=== PATIENT | male | born 1985 | race Caucasian/White ===

== ENCOUNTER 2024-11-10 09:54 | Outpatient (AMB) | payer OTHER, SELFPAY ==
--- NOTE | 2024-11-10 10:02 | MHC.PC.OV ---
Vital Signs 11/10/24 10:08 Height 5 ft 8 in Weight 214 lb 6 oz BMI 32.6 BP 124/72 Blood Pressure Location Rt brachial Position Sitting Respiration 12 Pulse 66 Pulse Source Pulse Oximeter Temp 97.6 F Temp Source Oral Pulse Oximetry (%) 99 Oxygen Delivery Method Room Air Intake Visit Reasons: Est. Care Intake Note: New patient to establish care. Woods Manager Required: No Allergies atorvastatin Allergy (Severe, Verified 11/10/24 10:30) Joint Pain Penicillins Allergy (Severe, Verified 11/10/24 10:30) Hives Medication List - Last Reconciled 11/10/24 by Margot Conley, [facility] escitalopram oxalate 10 mg PO DAILY rosuvastatin 10 mg PO DAILY Tobacco use date assessed: 11/10/24 Dental Screening Dental Screen Date: 11/10/24 Did you have a dental visit in the last 12 months?: Yes Did you have a dental problem in the last 6 months where you did not have access to dental care?: No Was dental information given to patient?: Patient has dentist HPI HPI Comments History of Present Illness Details 39 y/o M with obesity, HLD, MDD, CARMITA, hx of statin induced myalgia, chronic fatigue, low libido Surgery: None Fhx: Dad hypothyroid, ND, MGM depression, MFG ND, PGF hypothyroid, brother MDD, Mom 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 Skin - no concerns - History of anxiety and depression, stable on escitalopram 10 mg daily. - History of hyperlipidemia with improvement on rosuvastatin 10 mg daily. Tolerating w/o side effects. FMhx HLD - Obesity with BMI of 32.6; some weight loss achieved but struggles with further reduction. - Reports chronic fatigue with slight improvement, normal testosterone levels. No current libido complaints. - Presence of left leg varicose veins, visible after weight loss, without significant discomfort. Past Surgical History - No history of surgery. 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 - Lives with a roommate, reports feeling safe. - Engages in physical activity as part of work routine. - Reports good nutritional intake, including fruits and vegetables; avoids sugary drinks and fast food. - Difficulty in weight management despite a healthy lifestyle. Health Maintenance - Last cholesterol lab results in 2023 showed improvement while on medication. - Overdue for tetanus vaccination, no record of recent update. - Routine screening planned for thyroid function due to family history. - Orders placed for routine lab work including cholesterol, renal, liver, and glucose levels. Review of Systems - Psychiatric: Denies overt depression or anxiety, reports stability on medication. - Cardiovascular: Reports no swelling in varicose vein-affected leg. - Endocrine: Denies history of diabetes, last testosterone level normal. - Hematologic: Denies feeling weak or faint during blood work. - Genitourinary: Denies issues with urination; reports low libido, notes slight improvement. - Musculoskeletal: Denies swelling but reports chronic fatigue. - Nutrition: Reports eating healthy with fruits and vegetables, active lifestyle. Physical Exam General: Well developed, well nourished, in no acute distress. Appears stated age. Head: Normocephalic, atraumatic. Eyes: Pupils are equal, round and reactive to light and accommodation. Conjunctivae are clear. Vision grossly normal. Patient wears eyeglasses. Ears: TMs clear AU, EACS WNL Nose: Patent, without discharge. Neck: Supple, no adenopathy or thyromegaly. Thyroid palpation was performed due to family history. Breast: Edu on SBE Lungs: Clear to auscultation bilaterally. No rales, rhonchi or wheeze noted. Good air flow in all white. Heart: Regular rate and rhythm. No murmurs, click, rubs or gallops are noted. Abdomen: Bowel sounds present in all quadrants. The abdomen is soft, nontender, with no masses or organomegaly noted. No hernias are noted. : Deferred. Reviewed SEBASTIAN & recommendations, Patient performs regular testicular self-exams. Pulses: Peripheral pulses are equal and palpable bilaterally. Strong pulses noted even with varicose veins. Extremities: No clubbing, cyanosis nor edema is noted. Varicose veins present on the left leg thigh to calf Neurologic: Gait and station normal. Cranial Nerves 2-12 intact. Motor strength grossly symmetrical and intact. No sensory loss. Balance normal. Skin: No rashes, ulcers, or lesions noted. Turgor is good. Skin color is good. Hair and nails are without abnormalities. Psych: Normal eye contact, affect and mood appropriate, and normal interactions. Patient is alert and appropriate to context. Results See below Discussion Notes We discussed the need for continued management of anxiety, depression, hyperlipidemia, and weight issues. I advised maintaining escitalopram and monitoring cholesterol levels to determine the necessity for ongoing rosuvastatin therapy. Educational material regarding lifestyle modifications for weight management was provided, emphasizing diet and physical activity. We discussed the potential benefits and procedures available for treating varicose veins and agreed on referring the patient to a vascular specialist at [facility]. Blood tests for cholesterol and routine screening have been planned. The patient was informed about the patient portal for test results and communications. Assessment and Plan 1. Anxiety and Depression - Continue escitalopram 10 mg daily; monitor symptoms. 2. Hyperlipidemia - Maintain rosuvastatin 10 mg; perform lab tests for monitoring. 3. 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 4. Varicose Vein L - Refer to vascular specialist; discuss treatment options. 5. Chronic Fatigue - Monitor; ensure rest and lifestyle management. 6. Health Maintenance - Update labs; refer for overdue tetanus vaccination. Patient Instructions - Continue taking meds as directed. - Maintain a healthy diet and exercise routine to aid weight management. - Visit referred vascular specialist for varicose veins evaluation. - Respond to lab testing requisitions promptly. - Ensure overdue vaccinations are updated. - RTO 6 mo HLD check, labs 1 week before, sooner PRN Consent Patient was informed and verbally consented to the use of an ambient scribe for clinic note documentation during this visit. An additional 30 minutes was spent addressing the problem(s) noted at todays visit. This includes time spent before the visit reviewing the chart, time spent during the visit, and time spent after the visit on documentation reviewing laboratory results, diagnostic imaging, medications, performing a medically necessary evaluation, counseling on diagnoses, care coordination, ordering appropriate tests, ordering appropriate medications, review of tests performed by other providers, reporting test results with the patient, communication with other healthcare providers. [facility] Medical History (Updated 11/10/24 @ 16:21 by ELIZABETH Ramirez) Allergy Anxiety and depression Hyperlipidemia Obesity Sinusitis Surgical History No pertinent past surgical history Family History (Updated 11/10/24 @ 10:13 by Polo Segovia MA) Father Thyroid disorder Heart attack Maternal Grandfather Heart attack High cholesterol Paternal Grandfather Thyroid disorder Paternal Grandmother High cholesterol Social History (Updated 11/10/24 @ 10:03 by Polo Segovia MA) Housing: House Alcohol intake: current Alcohol intake frequency: a few times a month Patient Tobacco Use Status: Never used Tobacco e-Cigarette/Vaping Use: Never Used Second Hand Smoke Exposure: No Current occupational status: employed 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 1. Little interest or pleasure in doing things: not at all 2. Feeling down, depressed, or hopeless: not at all 3. Trouble falling or staying asleep, or sleeping too much: not at all 4. Feeling tired or having little energy: several days 5. Poor appetite or overeating: not at all 6. Feeling bad about yourself - or that you are a failure or have let yourself or your family down: not at all 7. Trouble concentrating on things, such as reading the newspaper or watching television: not at all 8. Moving or speaking so slowly that other people could have noticed. Or the opposite - being so fidgety or restless that you have been moving around a lot more than usual: not at all 9. Thoughts that you would be better off or of hurting yourself in some way: not at all Total score: 1 Depression Screening Interpretation: Negative Depression Screening Done: Yes 65423 - PHQ-9 Billing: Yes Source: Developed by Drs. Neal Maxwell, Debra Alvarez, Cortes Washburn and colleagues, with an educational phuc from [employer]. Thrive Questionnaire Date Thrive assessed: 11/10/24 I am a: Patient What is your living situation today?: I have a steady place to live Within the past 12 months, did the food you bought not last and you didn't have the money to get more?: Never true Within the past 12 months, did you worry whether your food would run out before you got money to buy more?: Never true Do you have trouble paying for medicines?: No Do you have trouble getting transportation to medical appointments?: No Do you have trouble paying your heating and electricity bill?: No Do you have trouble taking care of your child, family member or friend?: No Do you have trouble with day-to-day activities such as bathing, preparing meals, shopping, managing finances, etc.?: No Are you currently unemployed and looking for a job?: No Are you interested in more education?: No Please select the resources that you would like help with: None Currently or been in a relationship where the following occur: No concerns reported THRIVE Score: 0 AUDIT C Alcohol Use Questionnaire (AUDIT-C) 1. How often do you have a drink containing alcohol?: Monthly or less 2. How many drinks containing alcohol do you have on a typical day when you are drinking?: 1 or 2 Total Score: 1 Score Reviewed/Action Taken: Yes CARMITA-7 AMB Questionnaire CARMITA-7 Date CARMITA - 7 assessed: 11/10/24 Feeling nervous, anxious, or on edge: 0 = Not at all Not being able to stop or control worryin = Not at all Worrying too much about different things: 0 = Not at all Trouble relaxin = Not at all Being so restless that it is hard to sit still: 0 = Not at all Becoming easily annoyed or irritable: 0 = Not at all Feeling afraid as if something awful might happen: 0 = Not at all Total CARMITA-7 score (0-4 normal; 5-9 mild; 10-14 moderate; 15-21 severe): 0 Source: Developed by Drs. Neal Maxwell, Debra Alvarez, Cortes Washburn and colleagues, with an educational phuc from [employer]. CARMITA-7 Assessment Billing CARMITA-7 Assessment Tool: CARMITA-7 Assessment 03912 Physical exam (Primary Care) Vital Signs: Last Vital Signs Temp 97.6 F 11/10/24 10:08 Pulse 66 11/10/24 10:08 Resp 12 11/10/24 10:08 BP 124/72 11/10/24 10:08 Pulse Ox 99 11/10/24 10:08 Oxygen Delivery Method Room Air 11/10/24 10:08 BMI result Body Mass Index 32.6 BMI Assessment/Plan discussion: High BMI High, discussed plan: lifestyle Tobacco/Smoking Status: Tobacco use Status Tobacco use date assessed 11/10/24 11/10/24 10:05 Patient Tobacco Use Status Never used Tobacco 11/10/24 10:04 e-Cigarette/Vaping Use Never Used 11/10/24 10:04 PHQ-9: PHQ-9 Score PHQ-9: Total score 1 11/10/24 10:36 Depression Screening Interpretation: Negative Thrive Assessment: Date of Thrive Assessment Date Thrive assessed 11/10/24 11/10/24 10:04 Currently or been in a relationship where the following occur: No concerns reported Results Reviewed Results Reviewed: LDL, or bad cholesterol continues to be above goal; will continue your rosuvastatin at the same dose, i have sent this refill in. Otherwise, labs look good! Laboratory Result Units Range Interpretation Provider Comments Sodium Level 141 mmol/L (135-145) Potassium Level 4.1 mmol/L (3.3-5.1) Chloride Level 104 mmol/L (96-108) Carbon Dioxide Level 32 mmol/L (22-29) High Anion Gap 9 (12-20) Low Blood Urea Nitrogen 9 mg/dL (9-16) Creatinine 0.89 mg/dL (0.5-1.4) Estimated Creatinine Clearance Calc Not Reportable Estimat Glomerular Filtration Rate > 60 Random Glucose 94 mg/dL (60-115) Estimated Average Glucose 105 mg/dL Hemoglobin A1c Percent 5.3 % (<6.0) Calcium Level 9.2 mg/dL (8.4-10.2) Total Bilirubin 0.9 mg/dL (0.0-1.0) Aspartate Amino Transf (AST/SGOT) 31 U/L (5-37) Alanine Aminotransferase (ALT/SGPT) 41 U/L (0-40) High Alkaline Phosphatase 74 U/L (39-117) Total Protein 7.5 g/dL (6.5-8.0) Albumin 4.8 g/dL (3.5-5.0) Triglycerides Level 103 mg/dL (<150) Cholesterol Level 213 mg/dL (<200) High LDL Cholesterol, Calculated 127 mg/dL (<100) High HDL Cholesterol 66 mg/dL (>40) Vitamin B12 Level 472 pg/mL (200-900) 25-Hydroxy Vitamin D Total 37.6 ng/mL (>30) Folate 8.5 ng/mL (> or = 4.0) Thyroid Stimulating Hormone (TSH) 1.17 uIU/mL (0.32-4.0) Urine Creatinine 89.71 mg/dL Urine Microalbumin < 5.0 mg/L Urine Microalbumin/Creatinine Ratio TNP Coding Level of Care Code New Pt Level 3 (35256) New Pt Prev Care 18-39yr(51534 Diagnoses Encounter to establish care Z76.89 Obesity (BMI 30-39.9) E66.9 CARMITA (generalized anxiety disorder) F41.1 Mild episode of recurrent major depressive disorder F33.0 Major depression episode severity: mild Varicose veins of left leg with edema I83.892 Laboratory exam ordered as part of routine general medical examination Z00.00 Encounter for general adult medical examination without abnormal findings Z00.00 Additional Codes CARMITA-7 Assessment Billing - CARMITA-7 Assessment Tool: CARMITA-7 Assessment 98520 ([id number]) PHQ-9 - 36477 - PHQ-9 Billing: Yes ([id number]) Assessment & Plan Assessment & Plan (1) Encounter to establish care: Code(s): Z76.89 - Persons encountering health services in other specified circumstances (2) Obesity (BMI 30-39.9): Code(s): E66.9 - Obesity, unspecified Category: Medical (3) CARMITA (generalized anxiety disorder): Code(s): F41.1 - Generalized anxiety disorder Category: Medical (4) MDD (major depressive disorder), recurrent episode: Code(s): F33.9 - Major depressive disorder, recurrent, unspecified Category: Medical Qualifiers: Major depression episode severity: mild Qualified Code(s): F33.0 - Major depressive disorder, recurrent, mild (5) Varicose veins of left leg with edema: Code(s): I83.892 - Varicose veins of left lower extremity with other complications Category: Medical (6) Laboratory exam ordered as part of routine general medical examination: Code(s): Z00.00 - Encounter for general adult medical examination without abnormal findings Category: Medical (7) Encounter for general adult medical examination without abnormal findings: Onset Date: ~11/10/24 Code(s): Z00.00 - Encounter for general adult medical examination without abnormal findings Category: Medical Plan . Orders: Orders Hemoglobin A1c Today Z00.00 - Encounter for general adult medical examination without abnormal findings Microalbumin, Random (w Creat) Today Z00.00 - Encounter for general adult medical examination without abnormal findings TSH reflex Free T4 Today Z00.00 - Encounter for general adult medical examination without abnormal findings Comprehensive Met. Panel Today Z00.00 - Encounter for general adult medical examination without abnormal findings Lipid Panel Today Z00.00 - Encounter for general adult medical examination without abnormal findings Vitamin B12 and Folate Today Z00.00 - Encounter for general adult medical examination without abnormal findings Vitamin D 25-OH Total Today Z00.00 - Encounter for general adult medical examination without abnormal findings Referrals Vascular Surgery Referral I83.892 - Varicose veins of left lower extremity with other complications Medications: New escitalopram oxalate 10 mg PO DAILY 90 tabs 2RF rosuvastatin 10 mg PO DAILY 90 tabs 2RF Patient Instructions: Walk-In Care (Urgent Care): We Make it Easy Walk-in for urgent medical issues such as: ? Seasonal Allergies ? Insect Bites ? Cough ? Diarrhea ? Acute Asthma Attacks ? Back, Knee or Joint Pain ? Ear Infection ? Fever without a Rash ? Headaches ? Nausea ? [place] Eye, Rash or Skin Irritation ? Sore Throat ? Sports Physicals ? Vomiting Most insurances are accepted. Patients do not need to be part of the [facility] to seek care at the walk-in clinic. Locations [facility] , [place] [address] ? [phone] [facility] Walk-In Care in [place] provides services to ages 18 and over. Open Wednesday-Wednesday: 8 a.m. to 5 p.m. and Wednesday: 9 a.m. to 3 p.m.* *Hours may vary due to staffing availability. To confirm Walk-In Care hours in [place], please call [phone]. [address] [place] [address] ? [phone] [facility] Walk-In Care in [place] provides services to ages 12 and over. Open Wednesday-Wednesday: 8 a.m. to 5 p.m. Hours may vary due to staffing availability. To confirm Walk-In Care hours in [place], please call [phone]. LABORATORY SERVICES: [facility] ? Primary Location [address] [place] [address] Wednesday through Wednesday 6:00 AM ? 5:00 PM Wednesday 7:00 AM ? 11:00 AM* [phone] The [facility] is centrally located near the front entrance of the [facility] for easy outpatient access. Convenient parking is provided for outpatients. *Hours may vary due to staffing availability. To confirm Laboratory hours for any location, please call [phone]. Offsite Location For your convenience, we offer offsite laboratory draw stations at the following locations: [address] [place] [address] ? [facility] [address] [facility], [address] Wednesday through Wednesday 7:30 AM ? 1:00 PM* [phone] *Hours may vary due to staffing availability. To confirm Laboratory hours for any location, please call [phone]. [place] ? [address] Wednesday through Wednesday 6:00 AM ? 3:30 PM* Wednesday 6:30 AM ? 3 PM* [phone] *Hours may vary due to staffing availability. To confirm Laboratory hours for any location, please call [phone] [facility] Wednesday through Wednesday 7:30 AM ? 4:00 PM* [phone] *Hours may vary due to staffing availability. To confirm Laboratory hours for any location, please call [phone] [place] [address] Wednesday through 9:00 AM ? 4:00 PM* *Hours may vary due to staffing availability. To confirm Laboratory hours for any location, please call [phone]. Appointments are not necessary. Walk-ins are welcome. Like all the departments throughout the [facility], our Lab undergoes frequent reviews to ensure the quality and accuracy of test results, and our staff takes special pride in its status as a nationally accredited facility. Patient Portal: ONE PATIENT. ONE RECORD. BETTER CARE. [facility] has a fully integrated, cutting-edge mobile electronic health information system that has revolutionized the way we care for our patients and manage our organization. This system improves communication and coordination enabling us to provide safe, higher-quality care, and an overall positive experience for staff and patients. Our first priority, as always, is to deliver the highest quality care possible. The system is running in the background supporting that priority. This portal is for all [facility] services and practices. If you are experiencing any technical difficulties with enrolling or logging into the Patient Portal please complete the [facility] Patient Portal Technical Support Form. [facility] now offers a new secure on-line interactive tool for patients to review their health information ? ?Patient Portal. This interactive web portal will enable patients and their families to take an active role in their care by providing easy, secure access to their health information via the internet. The Patient Portal provides patients with instant access to their health information, including laboratory results, medications, allergies, demographic information, visit history, and more. In addition to managing their own care, parents and health care proxies with authorized consent will appreciate the ability to access the records of those individuals for whom they provide care. Please note: if you wish to gain access (Proxy) to another patient?s portal, you will be required to come to the Medical Records Department in person at [facility]. Both the patient giving proxy access and the proxy will need to provide photo identification and complete the appropriate authorization. The Patient Portal also allows track their appointments online. The [facility] Patient Portal also saves patients time by allowing them to submit updates to their demographic and contact information prior to their visits. Portal email notifications will also alert patients to any new activity on their portal, such as test results and new appointments. In order to initially enroll in the [facility] Patient Portal, you will need to enter some required information including the following: your [facility] Medical Record number your personal home email address name date of Please note: In order to enroll in the [facility] Patient Portal, we need to have your email address on file in your electronic medical record. ?The email address needs to be specific for one person (yourself) in order for your Portal enrollment to be successful. ?You can update your email address in person with our Registration staff when you are registering for a hospital visit. ?Otherwise, you will need to come to the Health Information Management (Medical Records) Department at [facility]. ?We are open from Wednesday ? Wednesday from 7:30 a.m. ? 4:30 p.m. ?You will be required to present a photo id. Once you have successfully enrolled in the Patient Portal, you will receive a one-time user id and password for the Portal, sent to your email address. ?This will allow you to log into the Patient Portal within 99 hrs and reset your own logon id and password, and define personal security questions. ?Once your permanent login and password have been set, you can log into the [facility] Patient Portal at any time via the blue button above or from the Portal Logon button on any page of the [facility] website. [facility] encourage all of our patients to enroll in Patient Portal as it presents a valuable opportunity for patients and their families to actively participate in their care and stay healthy Welcome to [facility]. ?We look forward to working with you. Health screenings for men You should visit your health care provider regularly, even if you feel healthy. The purpose of these visits is to: Screen for medical issues Assess your risk for future medical problems Encourage a healthy lifestyle Update vaccinations and other preventive care services Help you get to know your provider in case of an illness Information Even if you feel fine, you should still see your provider for regular checkups. These visits can help you avoid problems in the future. For example, the only way to find out if you have high blood pressure is to have it checked regularly. High blood sugar and high cholesterol level also may not have any symptoms in the early stages. Simple blood tests can check for these conditions. There are specific times when you should see your provider or receive specific health screenings. The [place] Preventive Services Task Force publishes a list of recommended screenings. Below are screening guidelines for men ages 40 to 64. BLOOD PRESSURE SCREENING Have your blood pressure checked at least once every year. Watch for blood pressure screenings in your area. Ask your provider if you can stop in to have your blood pressure checked. Ask your provider if you need your blood pressure checked more often if: You have diabetes, heart disease, kidney problems, or are overweight or have certain other health conditions You have a first-degree relative with high blood pressure You are Black Your blood pressure top number is from 120 to 129 mm Hg, or the bottom number is from 70 to 79 mm Hg If the top number is 130 mm Hg or greater or the bottom number is 80 mm Hg or greater, this is considered stage 1 hypertension. Schedule an appointment with your provider to learn how you can lower your blood pressure. Effects of age on blood pressure CHOLESTEROL SCREENING Cholesterol screening should begin at age 35 for men with no known risk factors for coronary heart disease. Repeat cholesterol screening should take place: Every 5 years for men with normal cholesterol levels More often if changes occur in lifestyle (including weight gain and diet) More often if you have diabetes, heart disease, kidney problems, or certain other conditions COLORECTAL CANCER SCREENING If you are under age 45, talk to your provider about getting screened. You may need to be screened if you have a strong family history of colon cancer or polyps. Screening may also be considered if you have risk factors such as a history of inflammatory bowel disease or polyps. If you are age 45 to 75, you should be screened for colorectal cancer. There are several screening tests available: A stool-based fecal occult blood (gFOBT) or fecal immunochemical test (FIT) every year A stool sDNA test every 1 to 3 years Flexible sigmoidoscopy every 5 years or every 10 years with stool testing FIT done every year CT colonography (virtual colonoscopy) every 5 years Colonoscopy every 10 years You may need a colonoscopy more often if you have risk factors for colorectal cancer, such as: Ulcerative colitis A personal or family history of colorectal cancer A history of growths in your colon called adenomatous polyps DENTAL EXAM Go to the dentist once or twice every year for an exam and cleaning. Your dentist will evaluate if you have a need for more frequent visits. DIABETES SCREENING All adults who do not have risk factors for diabetes should be screened starting at age 35 and repeated every 3 years. If you have other risk factors for diabetes, such as a first degree relative with diabetes, overweight or obesity, high blood pressure, prediabetes, or a history of heart disease, you may be tested more often. If you are overweight and have other risk factors, such as high blood pressure and are planning to become , screening is recommended. EYE EXAM Have an eye exam every 2 to 4 years ages 40 to 54 and every 1 to 3 years ages 55 to 64. Your provider may recommend more frequent eye exams if you have vision problems or glaucoma risk. Have an eye exam that includes an examination of your retina (back of your eye) at least every year if you have diabetes. IMMUNIZATIONS Commonly needed vaccines include: Flu shot: get one every year COVID-19 vaccine: ask your provider what is best for you Tetanus-diphtheria and acellular pertussis (Tdap) vaccine: have as one of your tetanus-diphtheria vaccines if you did not receive it as an adolescent Tetanus-diphtheria: have a booster (or Tdap) every 10 years Varicella vaccine: receive 2 doses if you never had chickenpox or the varicella vaccine and were born in 1980 or after Hepatitis B vaccine: receive 2, 3, or 4 doses, depending on your exact circumstances, if you did not receive these as a child or adolescent, until age 59 Shingles (herpes zoster) vaccine: at or after age 50 Ask your provider if you should receive other immunizations, especially if you have certain medical conditions, such as diabetes or are at increased risk for some diseases such as pneumonia. INFECTIOUS DISEASE SCREENING Screening for hepatitis C: all adults ages 18 to 79 should get a one-time test for hepatitis C. Screening for human immunodeficiency virus (HIV): all people ages 15 to 65 should get a one-time test for HIV. Depending on your lifestyle and medical history, you may need to be screened for infections such as syphilis, chlamydia, and other infections. LUNG CANCER SCREENING You should have an annual screening for lung cancer with low-dose computed tomography (LDCT) if: You are age 50 to 80 years AND You have a 20 pack-year smoking history AND You currently smoke or have quit within the past 15 years OSTEOPOROSIS SCREENING If you are age 50 to 64 and have risk factors for osteoporosis, you should discuss screening with your provider. Risk factors can include long-term steroid use, low body weight, smoking, heavy alcohol use, having a fracture after age 50, or a family history of hip fracture or osteoporosis. Osteoporosis PHYSICAL EXAM All adults should visit their provider from time to time, even if they are healthy. The purpose of these visits is to: Screen for diseases Assess risk of future medical problems Encourage a healthy lifestyle Update vaccinations and other preventive care services Maintain a relationship with a provider in case of an illness Your height, weight, and body mass index (BMI) should be checked at every exam. During your exam, your provider may ask you about: Depression and anxiety Diet and exercise Alcohol and tobacco use Safety, such as use of seat belts and smoke detectors Your medicines and risk for interactions PROSTATE CANCER SCREENING If you're 55 through 69 years old, before having the test, talk to your provider about the pros and cons of having a PSA test. Ask about: Whether screening decreases your chance of dying from prostate cancer. Whether there is any harm from prostate cancer screening, such as side effects from testing or overtreatment of cancer when discovered. Whether you have a higher risk of prostate cancer than others. If you are age 55 or younger, screening is not generally recommended. You should talk with your provider about if you have a higher risk for prostate cancer. Risk factors include: Having a family history of prostate cancer (especially a brother or father) Being If you choose to be tested, the PSA blood test is repeated over time (yearly or less often), though the best frequency is not known. Prostate examinations are no longer routinely done on men with no symptoms. Prostate cancer SKIN EXAM Your provider may check your skin for signs of skin cancer, especially if you're at high risk. People at high risk include those who have had skin cancer before, have close relatives with skin cancer, or have a weakened immune system. TESTICULAR EXAM The US Preventive Services Task Force (USPSTF) now recommends against performing testicular self-exams. Doing testicular self-exams has been shown to have little to no benefit.
[2024-11-10 10:08] VITALS: BP 124/72; PULSE 66; RESP 12; TEMP 36.4; O2SAT 99; BMI 32.6
--- OUTSIDE RECORDS SUMMARY | 2024-11-10 10:36 | XMS_ITS | Clinical Summary ---
Author Organization [facility] Address [address] [place] [address] Care Team Providers Care Supervisor Drying And Softening Name Role Phone Unavailable Primary Care Provider Unavailabl e Allergies Active Allergy Reactions Criticality Noted Date Comments Penicillins Hives 07/20/2016 Medications Medication Sig Dispensed Refills Start Date End Date Status mometasone (ELOCON) 0.1 % creamIndications:All ergic dermatitis due to other chemical product Apply topically 2 (two) times a day. 30 g 0 04/15/2018 Active escitalopram (LEXAPRO) tablet 10 mg TAKE 1 TABLET BY MOUTH EVERY DAY 90 tablet 2 09/13/2020 Active Active Problems No known active problems Family History Medical History Relation Name Comments No Sig Med Hx Brother Cataracts Father Thyroid disease Father Relation Name Status Comments Brother Alive Father Alive Social History Tobacco Use Types Packs/Day Years Used Date Smoking Tobacco: Never Smokeless Tobacco: Never Alcohol Use Standard Drinks/Week Comments No 0 (1 standard drink = 0.6 oz pur e alcohol) Sex and Gender Information Value Date Recorded Sex Assigned at Male 04/15/2018 10:44 AM EST Gender Identity Male 04/15/2018 10:44 AM EST Sexual Orientation Not on file Last Filed Vital Signs Vital Sign Reading Time Taken Comments Blood Pressure 122/72 04/15/2018 10:42 AM EST Pulse 93 04/15/2018 10:42 AM EST Temperature 37.1 ??C (98.8 ??F) 04/15/2018 1 0:42 AM EST Respiratory Rate 16 04/15/2018 10:4 2 AM EST Oxygen Saturation 96% 04/15/2018 10: 42 AM EST Inhaled Oxygen Concentration - - Weight 104.2 kg (229 lb 12.8 oz) 2017 10:42 AM EST Height 170.8 cm (5' 7.25 ) 04/15/2018 1 0:42 AM EST Body Mass Index 35.72 04/15/2018 10:42 AM EST Plan of Treatment Health Maintenance Due Date Last Done Comments Hepatitis B Vaccines (1 of 3 - 3-dose series) 1985 Hepatitis C Screening 1985 COVID-19 Vaccine (#1) 03/16/1986 Depression Screening 1997 DTap / Tdap / Td (1 - Tdap) 2004 Preventative Health Evaluation 07/20/2017 07/20/2016 Influenza Vaccine (Season Ended) 2025 Pneumococcal Vaccine Aged Out No long er eligible based on patient's age to complete this topic RSV Ped < 20 months Aged Out No longe r eligible based on patient's age to complete this topic
== END 2024-11-10 10:53 | disposition home or self-care (01) ==
LOC: HO.HMCFM 09:55
PROVIDERS: PCP Nurse Practitioner Family; Visit Provider Nurse Practitioner Family
DX: Z00.00 Encounter for general adult medical examination without abnormal findings (principal); I83.892 Varicose veins of left lower extremity with other complications; Z68.32 Body mass index [BMI] 32.0-32.9, adult; E66.9 Obesity, unspecified; F41.1 Generalized anxiety disorder; Z76.89 Persons encountering health services in other specified circumstances; F33.0 Major depressive disorder, recurrent, mild

== ENCOUNTER → 2024-11-10 09:54 | Outpatient (BNVA) | payer OTHER, SELFPAY | PROVIDERS: PCP Nurse Practitioner Family; Visit Provider Nurse Practitioner Family | DX: Z00.00 Encounter for general adult medical examination without abnormal findings (principal); E66.9 Obesity, unspecified; E78.5 Hyperlipidemia, unspecified; F33.0 Major depressive disorder, recurrent, mild; F41.1 Generalized anxiety disorder; R68.82 Decreased libido; I83.892 Varicose veins of left lower extremity with other complications; Z76.89 Persons encountering health services in other specified circumstances; Z68.32 Body mass index [BMI] 32.0-32.9, adult | CPT/HCPCS: 96127 ==

== ENCOUNTER 2024-11-10 10:57 | Outpatient (REF) | payer OTHER, SELFPAY ==
[2024-11-10 14:22] LABS: Estimated Average Glucose 105 mg/dL; Hemoglobin A1c % 5.3 % (<6.0)
[2024-11-10 14:30] LABS: Alanine Aminotransferase 41 U/L (0-40); Albumin Level 4.8 g/dL (3.5-5.0); Alkaline Phosphatase 74 U/L (39-117); Anion Gap 9 (12-20); Aspartate Amino Transferase 31 U/L (5-37); Bilirubin Total 0.9 mg/dL (0.0-1.0); Blood Urea Nitrogen 9 mg/dL (9-16); Calcium 9.2 mg/dL (8.4-10.2); Carbon Dioxide 32 mmol/L (22-29); Chloride 104 mmol/L (96-108); Cholesterol 213 mg/dL (<200); Estimated Glomerular Filt Rate > 60; Glucose Random 94 mg/dL (60-115); HDL Cholesterol 66 mg/dL (>40); LDL Cholesterol Calculated 127 mg/dL (<100); Potassium 4.1 mmol/L (3.3-5.1); Sodium 141 mmol/L (135-145); Total Protein 7.5 g/dL (6.5-8.0); Triglycerides 103 mg/dL (<150)
[2024-11-10 14:43] LABS: Creatinine Urine 89.71 mg/dL; Microalbumin Urine < 5.0 mg/L
[2024-11-10 14:47] LABS: TSH reflex Free T4 1.17 uIU/mL (0.32-4.0); Vitamin D 25-OH Total 37.6 ng/mL (>30)
[2024-11-10 14:58] LABS: Folate 8.5 ng/mL (> or = 4.0); Vitamin B12 472 pg/mL (200-900)
== END 2024-11-10 10:58 | disposition home or self-care (01) ==
LOC: HO.WFDLDS 10:57
PROVIDERS: Visit Provider Nurse Practitioner Family
DX: Z00.00 Encounter for general adult medical examination without abnormal findings (principal); Z13.1 Encounter for screening for diabetes mellitus; E78.00 Pure hypercholesterolemia, unspecified
CPT/HCPCS: 36415; 80053; 80061; 82306; 82570; 82607; 82746; 83036; 84443

== ENCOUNTER 2024-12-05 10:20 | Outpatient (AMB) | payer OTHER, SELFPAY ==
[2024-12-05 10:27] VITALS: BMI 32.5
--- NOTE | 2024-12-05 10:27 | A.OFFVIS_ITS ---
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 Has VV on his calf, thigh and a cluster on his pretibial area. 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 Noticed about 1 yr ago Accompanied by: Self / Same As Patient Allergies atorvastatin Allergy (Severe, Verified 12/05/24 10:30) Joint Pain Penicillins Allergy (Severe, Verified 12/05/24 10:30) Hives HPI HPI FIELD SPECIALIST/[facility] referral for VV of LLE: Details: Huang, a pleasant 39yo male patient, is presenting today on a referral from his PCP for concerns of left lower extremity VV with inflammation. Complaints include discomfort over varicosities, slight swelling of lower extremities, cramping, fatigue, and heaviness of the lower extremities. It has been affecting their daily activities including working, standing, and physical activity. It is noted more so in the left leg. He states he first noticed the VV appx 2y ago. He is a nonsmoker. He is not a diabetic. He has no hx of blood c lots and there is no known family hx of clotting disorders. Patient denies any previous venous surgery or injections. Patient denies any history of DVT/ PE. Patient denies any history of phlebitis. Trial of compression includes - elevation, which helps They now present for vascular evaluation regarding their varicose veins. 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 Cognitive needs: No Hearing needs: No Vision needs: Yes (wear glasses) Review of Systems Const Reports as per HPI and Denies weakness ENT Reports Normal hearing present and Denies dizziness Card Reports as per HPI, Denies chest pain, Denies chest pain at rest, Denies chest pain with activity, Denies dyspnea and Denies dyspnea on exertion Resp Reports as per HPI, Denies cough, Denies dyspnea and Denies dyspnea on exertion GI Reports as per HPI, Denies abdominal pain, Denies nausea and Denies vomiting Musc Denies numbness Skin/Breast Reports as per HPI, Denies erythema and Denies wounds Neuro Reports Normal hearing present, Denies dizziness, Denies numbness, Denies Sensory deficit (Neuro) and Denies weakness Psych Reports no additional complaints Endo Reports no additional complaints Physical Exam Vital Signs: BMI result Body Mass Index 32.5 Const General: healthy appearing and no acute distress Orientation/consciousness: patient oriented x3 HEENT Head: Yes normal to inspection Ears: hearing grossly normal bilaterally Mouth: Normal oral and palatal mucosa present Resp Effort & Inspection: normal respiratory effort and able to speak in complete sentences Auscultation: clear to auscultation bilaterally Cardio Jugular venous distension: no JVD Rate: regular rate Rhythm: regular rhythm Heart sounds: S1 normal heart sound present and S2 normal heart sound present Bruits: no abdominal aortic bruits, no carotid bruits, no femoral bruits and no renal bruits Peripheral pulses: Peripheral pulses 2+ throughout GI Inspection: Yes normal to inspection Palpation (GI): No Abdominal aortic bruit present Skin General skin exam: no rashes or lesions noted Wounds: no wounds Hair: normal Neuro General: patient oriented x3 Cranial nerves: Yes Normal hearing present Cognition (Neuro): normal cognition Gait exam (Neuro): Normal gait present Motor exam (neuro): 5/5 motor strength present throughout Sensory Exam: No Sensory deficit (Neuro) Extrem Other: Left lower extremity: cluster of small varicosities noted on the pretibial area. Smaller varicosities noted on the upper medial thigh as well as on the posterior of the calf. Trace peripheral edema noted. CEAP: C - 3 E - primary A - superficial P - reflux General: Yes normal to inspection, Yes full ROM, Yes capillary refill normal and Yes normal gait Assessment & Plan Assessment & Plan (1) Varicose veins of left lower leg: Code(s): I83.92 - Asymptomatic varicose veins of left lower extremity Category: Medical Plan: Huang is presenting today on a referral from his PCP for concerns of VV with inflammation. In short, the patient has evidence of venous insufficiency. I have discussed the pathophysiology with the patient. In addition I have provided informational material regarding venous disease to the patient. We have discussed conservative measures including compression, elevation, and exercise. We discussed the importance of compression socks; he states that he wears shorts and there is no air conditioning where he works but will start wearing them when the weather cools. I have taken the liberty of ordering venous insufficiency testing with the patient. They will follow up with me after testing. The patient had an opportunity to ask questions regarding the treatment plan. All questions were answered. Imaging studies, laboratory studies and physical exam results were discussed and reviewed in detail. No major barriers to understanding were identified. The patient expressed understanding and agreement with the above treatment plan. The patient is aware they should contact our office by phone for worsening of the current condition or the appearance of new symptoms. Thank you for allowing me to participate in the vascular care of this patient. If you have any questions or concerns regarding the treatment for the above condition please do not hesitate to contact me. The office telephone contact is [phone]. This note is constructed using voice recognition software. While every effort has been made to ensure accuracy, inspector tool errors may have been included. Thank you for allowing me to participate in the care of your patient. Yours sincerely, JASS Ernst Orders: Orders US venous duplex LE BI 1 Week I83.92 - Asymptomatic varicose veins of left lower extremity Coding Level of Care Code New Pt Level 4 (76936) Diagnoses Varicose veins of left lower leg I83.92
--- OUTSIDE RECORDS SUMMARY | 2024-12-05 11:18 | XMS_ITS | Clinical Summary ---
Author Organization [facility] Address [address] [place] [address] Care Team Providers Care Advertising Vice President Name Role Phone Unavailable Primary Care Provider [...] 93 04/15/2018 10:42 AM EST Temperature 37.1 C (98.8 F) 04/15/2018 10:42 AM EST Respiratory Rate 16 04/15/2018 10:4 [...] Preventative Health Evaluation 07/20/2017 07/20/2016 Influenza Vaccine (#1) 2025 Pneumococcal Vaccine Aged Out No long er eligible based on patient's age to complete this topic RSV Ped < 20 months Aged Out No longe r eligible based on patient's age to complete this topic
== END 2024-12-05 10:45 | disposition home or self-care (01) ==
LOC: HO.HVS 10:27
PROVIDERS: PCP Nurse Practitioner Family; Visit Provider Physician Assistant Surgical
DX: I83.92 Asymptomatic varicose veins of left lower extremity (principal)
CPT/HCPCS: 99204

== ENCOUNTER 2025-01-05 13:12 | Outpatient (REF) | payer OTHER, SELFPAY ==
--- NOTE | ~2025-01-05 | US_ITS ---
EXAMINATION: US LOWER EXTREMITY VENOUS (REFLUX EXAM), BILATERAL CLINICAL INFORMATION: Varices. COMPARISON: None. TECHNIQUE: Color flow triplex imaging and compression Doppler was performed to evaluate both the deep and the superficial systems bilaterally. To evaluate the superficial system, the examination was performed in the upright position. Color-flow Doppler ultrasound and compression ultrasound were utilized. In addition, maneuvers were utilized to demonstrate reflux. FINDINGS: 1. DEEP VENOUS ULTRASOUND OF THE RIGHT LOWER EXTREMITY: Common Femoral Vein: Compressible, normal respiratory variation and augmented flow. Femoral Vein: Compressible, normal color flow and augmentation. Popliteal Vein: Compressible, normal augmentation. Deep Reflux: There is no evidence of reflux in the deep system in either the common femoral vein, superficial femoral or the popliteal vein. There is no evidence of a Causey's cyst. 2. SUPERFICIAL ULTRASOUND WITH DOPPLER OF RIGHT LOWER EXTREMITY: GREAT SAPHENOUS VEIN: Saphenofemoral Junction: 0.8 cm; Reflux: 0 ms Proximal Thigh: 0.3 cm; Reflux: 0 ms Mid Thigh: 0.3 cm; Reflux: 0 ms Distal Thigh: 0.4 cm; Reflux: 0 ms At Knee: 0.4 cm; Reflux: 0 ms Proximal Calf: 0.3 cm; Reflux: 0 ms Mid Calf: 0.3 cm; Reflux: 0 ms Distal Calf: 0.4 cm; Reflux: 0 ms DUPLICATED MEDIAL GREAT SAPHENOUS VEIN: Diameter: None imaged Reflux: NA DUPLICATED LATERAL GREAT SAPHENOUS VEIN: Diameter: None imaged Reflux: NA SMALL SAPHENOUS VEIN: Saphenopopliteal Junction: 0.3 cm; Reflux: 0 ms Proximal: 0.2 cm; Reflux: 0 ms Distal: 0.3 cm; Reflux: 0 ms VEIN OF GIACOMINI: Size: 0.2 cm. Reflux: NA PERFORATORS: Location: At the knee and midcalf. Size: 0.1-0.3 cm. Reflux: NA VARICOSITIES: Location: Proximal calf. Size: 0.3 cm. Reflux: NA 3. DEEP VENOUS ULTRASOUND OF THE LEFT LOWER EXTREMITY: Common Femoral Vein: Compressible, normal respiratory variation and augmented flow. Femoral Vein: Compressible, normal color flow and augmentation. Popliteal Vein: Compressible, normal augmentation. Deep Reflux: There is no evidence of reflux in the deep system in either the common femoral vein, superficial femoral or the popliteal vein. There is no evidence of a Causey's cyst. 4. SUPERFICIAL ULTRASOUND WITH DOPPLER OF LEFT LOWER EXTREMITY: GREAT SAPHENOUS VEIN: Saphenofemoral Junction: 0.8 cm; Reflux: 0 ms Proximal Thigh: 0.5 cm; Reflux: 0 ms Mid Thigh: 0.5 cm; Reflux: 0 ms Distal Thigh: 0.5 cm; Reflux: 0 ms At Knee: 0.5 cm; Reflux: 0 ms Proximal Calf: 0.5 cm; Reflux: 2036 ms Mid Calf: 0.3 cm; Reflux: 0 ms Distal Calf: 0.3 cm; Reflux: 0 ms DUPLICATED MEDIAL GREAT SAPHENOUS VEIN: Diameter: None imaged Reflux: NA DUPLICATED LATERAL GREAT SAPHENOUS VEIN: Diameter: 1.0 cm. Reflux: 3116 ms. SMALL SAPHENOUS VEIN: Saphenopopliteal Junction: 0.3 cm; Reflux: 0 ms Proximal: 0.2 cm; Reflux: 0 ms Distal: 0.2 cm; Reflux: 0 ms VEIN OF GIACOMINI: Size: 0.3 cm. Reflux: NA PERFORATORS: Location: Small saphenous vein, mid segment. Proximal and mid calf. Size: 0.2-0.3 cm. Reflux: NA VARICOSITIES: Location: Proximal and mid calf. Accessory lateral saphenous vein at the proximal calf. Size: 0.3-0.5 cm. Reflux: 1824 ms in the proximal calf and 3052 ms in the lateral and proximal segment of the accessory saphenous vein. US/US venous insuf bilat IMPRESSION: Right: No venous insufficiency. Perforators and varices without reflux. Left: Venous insufficiency, great saphenous vein, below the knee. Venous insufficiency, lateral accessory saphenous vein at the junction. Varices with reflux in the proximal calf and proximal lateral aspect of the accessory saphenous vein. Electronically signed by: Bud Henderson MD 01/05/2025 03:46 PM EDT
--- OUTSIDE RECORDS SUMMARY | 2025-01-05 13:15 | XMS_ITS | Clinical Summary ---
Author Organization [facility] Address [address] [place] [address] Care Team Providers Care Record Producer Name Role Phone Unavailable Primary Care Provider [...]
== END 2025-01-05 13:13 | disposition home or self-care (01) ==
LOC: HO.US 13:12
PROVIDERS: PCP Nurse Practitioner Family; Visit Provider Physician Assistant Surgical
DX: I83.92 Asymptomatic varicose veins of left lower extremity (principal)
CPT/HCPCS: 93970

== ENCOUNTER → 2025-01-05 13:14 | Outpatient (BNV) | payer OTHER, SELFPAY | PROVIDERS: PCP Nurse Practitioner Family; Visit Provider Radiology Diagnostic Radiology | DX: I87.2 Venous insufficiency (chronic) (peripheral) (principal) | CPT/HCPCS: 93970 ==

== ENCOUNTER 2025-02-20 15:00 | Outpatient (AMB) | payer OTHER, SELFPAY ==
--- NOTE | 2025-02-20 15:05 | MHC.OFFVIS ---
Intake Visit Reasons: follow up [facility] 01/05/25 Intake Note: Patient presents for follow up [facility] , no complaints. Accompanied by: Self / Same As Patient Allergies atorvastatin Allergy (Severe, Verified 02/20/25 15:07) Joint Pain Penicillins Allergy (Severe, Verified 02/20/25 15:07) Hives HPI HPI follow up [facility] 01/05/25: Details: Very pleasant 39-year-old gentleman presents for follow-up regarding venous disease. 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 He is concerned about some varicosities over the left lower extremity particular the thigh and knee. No other significant history. He does notice occasional swelling and mild discomfort. He now presents for routine follow-up with venous insufficiency testing. 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 Cognitive needs: No Hearing needs: No Vision needs: Yes (wear glasses) Review of Systems Const All systems reviewed & are unremarkable except as noted in HPI and below Reports no additional complaints ENT Reports Normal hearing present Card Denies chest pain, Denies chest pain at rest, Denies chest pain with activity and Denies pedal edema Resp Denies cough GI Denies abdominal pain Musc Denies abnormal gait, Denies muscle cramps and Denies radiating pain into limb Skin/Breast Denies skin ulcer and Denies wounds Neuro Reports Normal hearing present and Denies abnormal gait Psych Reports no additional complaints Physical Exam Const General: cooperative, healthy appearing and comfortable Orientation/consciousness: oriented to person, oriented to place and oriented to time HEENT Head: Yes normal to inspection Neck Neck: Yes normal visual inspection Carotids: no bruits Chest Chest palpation & inspection: normal inspection of the chest Resp Effort & Inspection: normal respiratory effort and able to speak in complete sentences Auscultation: clear to auscultation bilaterally, no crackles, no rales, no rhonchi and no wheezes Cardio Rate: regular rate Rhythm: regular rhythm Heart sounds: S1 normal heart sound present and S2 normal heart sound present Bruits: no carotid bruits Peripheral pulses: Peripheral pulses 2+ throughout GI Inspection: Yes normal to inspection Skin Wounds: no wounds Hair: normal Neuro General: oriented to person, oriented to place and oriented to time Cranial nerves: Yes CN's II-XII intact bilaterally and Yes Normal hearing present Cognition (Neuro): normal cognition Motor exam (neuro): 5/5 motor strength present throughout Extrem Other: venous exam: Left thigh varicosity General: No clubbing, No cyanosis and Yes edema Psych Appearance: grossly normal Mental Status: mental status grossly normal Speech and movement: Normal speech and movement present Results Reviewed Results Reviewed: Brief summary of venous insufficiency testing is as follows: right great saphenous vein: negative right small saphenous vein: negative right accessory vein: none present left great saphenous vein: negative left small saphenous vein: negative left accessory vein: none present Please note there is no evidence of any venous aneurysms or significant tortuosity Assessment & Plan Assessment & Plan (1) Varicose veins of left lower leg: Code(s): I83.92 - Asymptomatic varicose veins of left lower extremity Category: Medical Plan: In short patient is negative for any significant venous insufficiency. At the current time would recommend only conservative measures including compression elevation and exercise. This was discussed in detail with the patient. Should the left thigh varicosity become more prominent or become an issue in the future happy to see him back. Thank you for allowing us to assist in his care. If there are any questions or concerns please do not hesitate to contact us Coding Level of Care Code Est Pt Level 4 (69415) Diagnoses Varicose veins of left lower leg I83.92
--- OUTSIDE RECORDS SUMMARY | 2025-02-20 18:02 | XMS_ITS | Clinical Summary ---
Author Organization [facility] Address [address] [place] [address] Care Team Providers Care Associate [employer] Name Role Phone Unavailable Primary Care Provider [...]
== END 2025-02-20 15:23 | disposition home or self-care (01) ==
LOC: HO.HVS 15:00
PROVIDERS: PCP Nurse Practitioner Family; Visit Provider Surgery Vascular Surgery
DX: I83.92 Asymptomatic varicose veins of left lower extremity (principal)
CPT/HCPCS: 99214

== ENCOUNTER 2025-05-14 08:51 | Outpatient (REF) | payer OTHER, SELFPAY ==
[2025-05-14 11:59] LABS: Alanine Aminotransferase 25 U/L (0-40); Albumin Level 4.7 g/dL (3.5-5.0); Alkaline Phosphatase 71 U/L (39-117); Anion Gap 9 (12-20); Aspartate Amino Transferase 30 U/L (5-37); Blood Urea Nitrogen 11 mg/dL (9-16); Calcium 9.2 mg/dL (8.4-10.2); Carbon Dioxide 29 mmol/L (22-29); Chloride 106 mmol/L (96-108); Cholesterol 165 mg/dL (<200); Estimated Glomerular Filt Rate > 60; HDL Cholesterol 52 mg/dL (>40); Potassium 4.2 mmol/L (3.3-5.1); Sodium 140 mmol/L (135-145); Total Protein 7.1 g/dL (6.5-8.0); Triglycerides 86 mg/dL (<150)
== END 2025-05-14 08:52 | disposition home or self-care (01) ==
LOC: HO.WFDLDS 08:51
PROVIDERS: PCP Nurse Practitioner Family; Visit Provider Nurse Practitioner Family
DX: E78.2 Mixed hyperlipidemia (principal); E66.9 Obesity, unspecified; I83.92 Asymptomatic varicose veins of left lower extremity; F33.0 Major depressive disorder, recurrent, mild; F41.1 Generalized anxiety disorder; Z68.33 Body mass index [BMI] 33.0-33.9, adult
CPT/HCPCS: 36415; 80053; 80061; 96127

== ENCOUNTER 2025-05-14 08:51 | Outpatient (AMB) | payer OTHER, SELFPAY ==
--- NOTE | 2025-05-14 08:54 | A.OFFPC_ITS ---
Vital Signs 05/14/25 08:58 Height 5 ft 8 in Weight 217 lb 2 oz BMI 33.0 BP 118/70 Blood Pressure Location Lt brachial Position Sitting Respiration 12 Pulse 93 Pulse Source Pulse Oximeter Temp 97.3 F Temp Source Oral Pulse Oximetry (%) 98 Oxygen Delivery Method Room Air Intake Visit Reasons: 6 mo HLD labs 1 week before Intake Note: 6 Months follow up. Patient c/o a bump in the back of his neck x 2 months. 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 Allergies atorvastatin Allergy (Severe, Verified 05/14/25 09:04) Joint Pain Penicillins Allergy (Severe, Verified 05/14/25 09:04) Hives Medication List - Last Reconciled 05/14/25 by HOWARD Ramirez- escitalopram oxalate 10 mg PO DAILY rosuvastatin 10 mg PO DAILY Tobacco use date assessed: 05/14/25 Dental Screening Dental Screen Date: 05/14/25 Did you have a dental visit in the last 12 months?: Yes Did you have a dental problem in the last 6 months where you did not have access to dental care?: No Was dental information given to patient?: Patient has dentist HPI HPI Comments History of Present Illness Details 39 y/o M with obesity, HLD, MDD, CARMITA, hx of statin induced myalgia, chronic fatigue, low libido Surgery: None Fhx: Dad hypothyroid, [place], MGM depression, [place], PGF hypothyroid, brother MDD, Mom 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 Hyperlipidemia: - The patient is being treated for hyper lipidemia with rosuvastatin and is compliant with his medication. - He reports no new joint aches or pains . - The patient's weight is stable and he has no history of hospital visits since the last encounter. - BMI 33 Anxiety and Depression: - The patient has a history of anxiety a nd depression, for which he takes escitalopram daily. - He reports that his mood is good. Sebaceous cyst of skin: - The patient noted a new, non-painful b ump on the back of his neck approximately one to two months ago while cutting his hair. - He reports the size has remained stabl e and it is not bothersome. Past Medical History - Hyperlipidemia, managed with rosuvasta tin. - Anxiety and depression, managed with e scitalopram. - No recent hospitalizations. - Recent vascular consultation resulted in a recommendation for supportive care without surgery. Review of Systems - General: Denies new joint aches or reginaldo ns. - Respiratory: Denies shortness of breat h. - Cardiovascular: Denies chest pain. - Integumentary: Reports a non-painful b ump on the back of the neck for 1-2 months. - Psychological: Reports a good mood. Physical Exam General: Well developed, well nourished, in no acute distress. Appears stated age. Head: Normocephalic, atraumatic. Noted a small bump on the back of the neck, right side, likely a sebaceous cyst, no pain or tenderness. Eyes: Pupils are equal, round and reactive to light and accommodation. Conjunctivae are clear. Vision grossly normal. Lungs: Clear to auscultation bilaterally. No rales, rhonchi or wheeze noted. Good air flow in all white. Heart: Regular rate and rhythm. No murmurs, click, rubs or gallops are noted. Neck: no carotid bruit Abdomen: Bowel sounds present in all quadrants. The abdomen is soft, nontender, with no masses or organomegaly noted. No hernias are noted. Musculoskeletal: Joints are nontender, without swelling, redness, or effusions. Pulses: Peripheral pulses are equal and palpable bilaterally. Extremities: No clubbing, cyanosis nor edema is noted. Psych: Mood and affect appropriate. Patient reports good mood, no new anxiety or depression symptoms. Results pending Medical Decision Making The patient is a 39-year-old male here for a routine 6-month follow-up for hyperlipidemia, anxiety, and depression. He is stable on rosuvastatin and escitalopram, reporting compliance and no adverse effects such as new myalgias. His blood pressure is well-controlled. Repeat lipid panel is indicated to assess efficacy of the current rosuvastatin 10 mg dose. The goal is an LDL cholesterol level below 100 mg/dL; if the upcoming labs show an elevated LDL, an increase in the rosuvastatin dose will be considered. The patient also presented with a new, non-tender nodule on the posterior neck, which appeared approximately 1-2 months ago. On examination, this is consistent with a benign sebaceous cyst. The patient was informed that it is not medically necessary to remove it, but referral for surgical excision is an option if it becomes larger, bothersome, or if he desires removal for cosmetic reasons. For now, the plan is to monitor the lesion. The patient has sufficient medication refills and will follow up in 6 months for his physical. He declined the influenza vaccine today. Plan 1. Hyperlipidemia - The patient is compliant with rosuvast atin 10 mg daily and denies any side effects. - A repeat lipid panel will be obtained today to monitor efficacy. - The LDL goal is less than 100 mg/dL; t he rosuvastatin dose may be increased if this target is not met. - Follow-up will be in six months. 2. Anxiety And Depression - The patient reports his mood is good a nd he continues to take escitalopram daily. - He has adequate medication refills at this time. - Plan is to continue current management . 3. Sebaceous Cyst Of Skin - The patient pointed out a new bump on the back of his neck, which has been present for 1-2 months. - Examination confirms a likely sebaceou s cyst; it is currently asymptomatic. - The patient was advised that the cyst is benign and unlikely to resolve on its own. - The option for surgical referral for e xcision was discussed, which the patient can pursue at any time if it becomes bothersome, grows, or for cosmetic reasons. - He opted to monitor the lesion for now . 4. Preventative Care - The patient declined an influenza vacc ination today. - A resident care manager referral was previously discussed but the patient has decided against it. - Follow up scheduled in six months for his physical. Patient Instructions - Continue taking rosuvastatin and escit alopram every day as prescribed. - Proceed to the lab today to have your blood drawn for a cholesterol check. - Keep an eye on the bump on the back of your neck. Let us know if it gets big akhil or starts to bother you. You can have it removed at any time if you change your mind. - Your lab results will be sent to you l ater today through the patient portal. - Please make your next appointment for your physical in six months before you leave today. Consent Patient was informed and verbally consented to the use of an ambient scribe for clinic note documentation during this visit. [facility] Medical History Allergy Sinusitis Obesity Hyperlipidemia Anxiety and depression Surgical History No pertinent past surgical history Family History Father Thyroid disorder Heart attack Maternal Grandfather Heart attack High cholesterol Paternal Grandfather Thyroid disorder Paternal Grandmother High cholesterol Social History Housing: House Alcohol intake: current Alcohol intake frequency: a few times a month Patient Tobacco Use Status: Never used Tobacco e-Cigarette/Vaping Use: Never Used Second Hand Smoke Exposure: No service: No Current occupational status: employed 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 1. Little interest or pleasure in doing things: not at all 2. Feeling down, depressed, or hopeless: not at all 3. Trouble falling or staying asleep, or sleeping too much: not at all 4. Feeling tired or having little energy: not at all 5. Poor appetite or overeating: not at all 6. Feeling bad about yourself - or that you are a failure or have let yourself or your family down: not at all 7. Trouble concentrating on things, such as reading the newspaper or watching television: not at all 8. Moving or speaking so slowly that other people could have noticed. Or the opposite - being so fidgety or restless that you have been moving around a lot more than usual: not at all 9. Thoughts that you would be better off or of hurting yourself in some way: not at all Total score: 0 Depression Screening Interpretation: Negative Depression Screening Done: Yes 26036 - PHQ-9 Billing: Yes Source: Developed by Drs. Neal Maxwell, Debra Alvarez, Cortes Washburn and colleagues, with an educational phuc from [employer]. Thrive Questionnaire Date Thrive assessed: 05/14/25 I am a: Patient What is your living situation today?: I have a steady place to live Within the past 12 months, did the food you bought not last and you didn't have the money to get more?: Never true Within the past 12 months, did you worry whether your food would run out before you got money to buy more?: Never true Do you have trouble paying for medicines?: No Do you have trouble getting transportation to medical appointments?: No Do you have trouble paying your heating and electricity bill?: No Do you have trouble taking care of your child, family member or friend?: No Do you have trouble with day-to-day activities such as bathing, preparing meals, shopping, managing finances, etc.?: No Are you currently unemployed and looking for a job?: No Are you interested in more education?: No Please select the resources that you would like help with: None Currently or been in a relationship where the following occur: No concerns reported THRIVE Score: 0 CARMITA-7 AMB Questionnaire CARMITA-7 Date CARMITA - 7 assessed: 05/14/25 Feeling nervous, anxious, or on edge: 0 = Not at all Not being able to stop or control worryin = Not at all Worrying too much about different things: 0 = Not at all Trouble relaxin = Not at all Being so restless that it is hard to sit still: 0 = Not at all Becoming easily annoyed or irritable: 0 = Not at all Feeling afraid as if something awful might happen: 0 = Not at all Total CARMITA-7 score (0-4 normal; 5-9 mild; 10-14 moderate; 15-21 severe): 0 Source: Developed by Drs. Neal Maxwell, Debra Alvarez, Cortes Washburn and colleagues, with an educational phuc from [employer]. CARMITA-7 Assessment Billing CARMITA-7 Assessment Tool: CARMITA-7 Assessment 42846 Physical exam (Primary Care) Vital Signs: Last Vital Signs Temp 97.3 F 05/14/25 08:58 Pulse 93 05/14/25 08:58 Resp 12 05/14/25 08:58 BP 118/70 05/14/25 08:58 Pulse Ox 98 05/14/25 08:58 Oxygen Delivery Method Room Air 05/14/25 08:58 BMI result Body Mass Index 33.0 BMI Assessment/Plan discussion: High BMI High, discussed plan: lifestyle Tobacco/Smoking Status: Tobacco use Status Tobacco use date assessed 05/14/25 05/14/25 09:00 Patient Tobacco Use Status Never used Tobacco 05/14/25 08:55 e-Cigarette/Vaping Use Never Used 05/14/25 08:55 PHQ-9: PHQ-9 Score PHQ-9: Total score 0 05/14/25 08:55 Depression Screening Interpretation: Negative Thrive Assessment: Date of Thrive Assessment Date Thrive assessed 05/14/25 05/14/25 08:55 Currently or been in a relationship where the following occur: No concerns reported Coding Level of Care Code Est Pt Level 4 (72378) Add On Problem Visit Only Diagnoses Mixed hyperlipidemia E78.2 Hyperlipidemia type: mixed hyperlipidemia Varicose veins of left lower leg I83.92 Obesity (BMI 30-39.9) E66.9 Mild episode of recurrent major depressive disorder F33.0 Major depression episode severity: mild CARMITA (generalized anxiety disorder) F41.1 Sebaceous cyst L72.3 Influenza vaccination declined Z28.21 Additional Codes CARMITA-7 Assessment Billing - CARMITA-7 Assessment Tool: CARMITA-7 Assessment 42500 ([id number]) PHQ-9 - 42662 - PHQ-9 Billing: Yes ([id number]) Assessment & Plan Assessment & Plan (1) Hyperlipidemia: Code(s): E78.5 - Hyperlipidemia, unspecified Category: Medical Qualifiers: Hyperlipidemia type: mixed hyperlipidemia Qualified Code(s): E78.2 - Mixed hyperlipidemia (2) Varicose veins of left lower leg: Comment: supportive care only, evaled by [facility] 2024 Code(s): I83.92 - Asymptomatic varicose veins of left lower extremity Category: Medical (3) Obesity (BMI 30-39.9): Code(s): E66.9 - Obesity, unspecified Category: Medical (4) MDD (major depressive disorder), recurrent episode: Code(s): F33.9 - Major depressive disorder, recurrent, unspecified Category: Medical Qualifiers: Major depression episode severity: mild Qualified Code(s): F33.0 - Major depressive disorder, recurrent, mild (5) CARMITA (generalized anxiety disorder): Code(s): F41.1 - Generalized anxiety disorder Category: Medical (6) Sebaceous cyst: Onset Date: ~2024 Comment: Right neck, near hairline offered and declined surgery referral; supportive care Code(s): L72.3 - Sebaceous cyst Category: Medical (7) Influenza vaccination declined: Code(s): Z28.21 - Immunization not carried out because of patient refusal Plan . Orders: Orders Comprehensive Met. Panel Today E66.9 - Obesity, unspecified, E78.5 - Hyperlipidemia, unspecified Hemoglobin A1c 6 Months Z00.00 - Encounter for general adult medical examination without abnormal findings Lipid Panel 6 Months Z00.00 - Encounter for general adult medical examination without abnormal findings Microalbumin, Random (w Creat) 6 Months Z00.00 - Encounter for general adult medical examination without abnormal findings Prostate Specific Antigen Scr 6 Months Z00.00 - Encounter for general adult medical examination without abnormal findings TSH reflex Free T4 6 Months Z00.00 - Encounter for general adult medical exam ination without abnormal findings Vitamin D 25-OH Total 6 Months Z00.00 - Encounter for general adult medical examination without abnormal findings Lipid Panel Today E66.9 - Obesity, unspecified, E78.5 - Hyperlipidemia, unspecified Complete Blood Count no Diff 6 Months Z00.00 - Encounter for general adult medical examination without abnormal findings Comprehensive Met. Panel 6 Months Z00.00 - Encounter for general adult medical examination without abnormal findings Vitamin B12 and Folate 6 Months Z00.00 - Encounter for general adult medical examination without abnormal findings
[2025-05-14 08:58] VITALS: BP 118/70; PULSE 93; RESP 12; TEMP 36.3; O2SAT 98; BMI 33.0
== END 2025-05-14 09:15 | disposition home or self-care (01) ==
LOC: HO.HMCFM 08:52
PROVIDERS: PCP Nurse Practitioner Family; Visit Provider Nurse Practitioner Family
DX: E78.2 Mixed hyperlipidemia (principal); I83.92 Asymptomatic varicose veins of left lower extremity; E66.9 Obesity, unspecified; Z68.33 Body mass index [BMI] 33.0-33.9, adult; F33.0 Major depressive disorder, recurrent, mild; F41.1 Generalized anxiety disorder; L72.3 Sebaceous cyst; Z28.21 Immunization not carried out because of patient refusal